=== PATIENT | female | born 1940 | race Caucasian/White ===

== ENCOUNTER 2019-01-03 15:15 | Emergency (ER) | payer MEDICARE, OTHER ==
[2019-01-03] MEDS ORDERED: SODIUM CHLORIDE 0.9% (FLUSH) 10 ML SYG IV PRN (17:04)
[2019-01-03] MEDS ORDERED: VANCOMYCIN HCL INJ 750 MG in SODIUM CHLORIDE 0.9% 250ML 250 ML IVPB ONE (17:05)
[2019-01-03] MEDS ORDERED: VANCOMYCIN HCL INJ 1,000 MG VIAL IVPB ONE (17:17)
[2019-01-03] MEDS ORDERED: SODIUM CHLORIDE 0.9% 250ML 250 ML ONE (17:17)
[2019-01-03] MEDS ORDERED: methylPREDNISolone SODIUM SUC 125 MG/2 ML VIAL IV ONE (17:24)
[2019-01-03] MEDS ORDERED: valACYclovir 500 MG TAB PO ONE (17:26)
--- NOTE | 2019-01-03 18:15 | ED.PDOC ---
History of Present Illness - General Chief Complaint: Skin/Abrasion/Tear Stated Complaint: discoloration and blisters to lt neck,chest, back Time Seen by Provider: 01/03/19 17:02 Source: patient, family Exam Limitations: no limitations - History of Present Illness Initial Comments: PT PRESENTS TO THE ED SENT IN BY DR. BEYER DUE TO RASH LOCATED ON LEFT SHOULDER AND NECK. FAMILY AT BEDSIDE STATES THAT RASH HAS BEEN PRESENT FOR THE PAST 3 DAYS AND APPEARS TO BE GETTING WORSE. PT WAS TOLD THAT RASH WAS DUE TO SHINGLES AT THE NURSING FACILITY, HOWEVER DR. BEYER WANTED HER TO BE EVALUATED IN THE ED. Timing/Duration: getting worse Severity: moderate Improving Factors: nothing Worsening Factors: nothing Associated Symptoms: denies symptoms Allergies/Adverse Reactions: Allergies NO KNOWN ALLERGY Allergy (Verified 01/03/19 18:30) Home Medications: Ambulatory Orders Arformoterol Tartrate [Brovana] 15 mcg INH Q12HR 01/03/19 Fluconazole [Diflucan Tab] 100 mg PO DAILY 01/03/19 Insulin Lispro [Humalog] 01/03/19 Metoprolol Tartrate [Lopressor] 50 mg PO Q12HR 01/03/19 Pantoprazole Tablet [Protonix] 40 mg PO BID 01/03/19 Prednisone [Deltasone] 40 mg PO DAILY 01/03/19 Sodium Bicarbonate (Antacid) [Sodium Bicarbonate] 1,300 mg PO BID 01/03/19 amLODIPine BESYLATE [Norvasc] 10 mg PO DAILY 01/03/19 Review of Systems - Review of Systems Constitutional: Denies: chills, fever EENTM: Denies: nose congestion, throat pain Respiratory: Denies: cough, short of breath Cardiology: Denies: chest pain, palpitations Gastrointestinal/Abdominal: Denies: nausea, vomiting Genitourinary: Denies: dysuria, frequency Musculoskeletal: Denies: joint pain, joint swelling Skin: States: see HPI, change in color, lesions, rash. Denies: dryness Neurological: Denies: headache, numbness Endocrine: States: no symptoms reported Hematologic/Lymphatic: States: no symptoms reported Past Medical History (General) - Patient Medical History Hx Seizures: No Hx Dementia: Yes - Traumatic brain injury Hx Asthma: No Hx of COPD: No Hx Cardiac Disorders: No Hx Congestive Heart Failure: No Hx Hypertension: Yes Hx Diabetes: No Hx Renal Disease: Yes - Dialysis pt Hx Cancer: No - Vaccination History Hx Tetanus, Diphtheria Vaccination: No Hx Influenza Vaccination: No Hx Pneumococcal Vaccination: Yes Immunizations Up to Date: Yes - Social History Hx Tobacco Use: No Hx Alcohol Use: No Hx Substance Use: No Hx Depression: No - Activities of Daily Living Correction/Assisted Living (if applicable):: [facility] - Female History Patient is a Female of Child Bearing Age (10 -59 yrs old): No - Triage Comment ED Triage Comment: Pt assisted into bed and into gown. Family Medical History - Family History Mother Family History: Unknown Living Status: Physical Exam - Physical Exam General Appearance: Alert, No apparent distress, Well Developed, Well Groomed, Well Hydrated Eye Exam: bilateral normal Ears, Nose, Throat: hearing grossly normal Neck: full range of motion, supple Respiratory: lungs clear, normal breath sounds, no respiratory distress Cardiovascular/Chest: regular rate, rhythm, no murmur, other - POORNIMA CATHETER IN THE RIGHT ANTERIOR CHEST WALL Gastrointestinal/Abdominal: non tender, soft Extremity: non-tender, normal inspection Neurologic: alert, normal mood/affect, oriented x 3 Skin Exam: rash - DIFFUSE PURPURA IN A DERMATOMAL DISTRIBUTION ON THE LEFT NECK/BACK/SHOULDER/AND CHEST WALL WITH AREAS OF BLISTERING AND HONEY COLORED CRUSTING Progress - Progress Progress: 01/03/19 18:44 PT RESTING COMFORTABLY, LABS AND PLAN TO TRANSFER FOR IV ABX DISCUSSED WITH PT AND FAMILY. - Results/Orders Results/Orders: Laboratory Tests 01/03/19 01/03/19 01/03/19 17:51 17:51 17:51 WBC 8.1 RBC 6.02 H Hgb 15.9 Hct 51.3 H MCV 85.2 MCH 26.5 L MCHC 31.1 L RDW 36.0 H Plt Count 222 MPV 8.6 Absolute Neuts (auto) 7.50 H Absolute Lymphs (auto) 0.30 L Absolute Monos (auto) 0.10 L Absolute Eos (auto) 0.20 Absolute Basos (auto) 0.00 Neutrophils % 92.0 H Lymphocytes % 4.2 L Monocytes % 1.6 L Eosinophils % 1.9 Basophils % 0.3 Normal RBC Morphology Stain quality accept PT 11.8 H INR 1.18 H PTT (SP) 24.7 Sodium 139 Potassium 2.7 L Chloride 95 L Carbon Dioxide 28 Anion Gap 18.7 H BUN 38 H Creatinine 3.30 H BUN/Creatinine Ratio 11.5 Random Glucose 112 H Serum Osmolality 287.3 Calcium 7.0 L Total Bilirubin 0.7 AST 18 ALT 19 Alkaline Phosphatase 92 Serum Total Protein 5.4 L Albumin 2.7 L Globulin 2.7 Albumin/Globulin Ratio 1.0 L Departure - Departure Clinical Impression: Impetigo bullosa, Shingles rash Time of Disposition: 18:47 Disposition: Transfer to Hospital Condition: Fair Departure Forms: ED Discharge - Pt. Copy, Patient Portal Self Enrollment Instructions: DI for Abrasion Home Medications: Ambulatory Orders Arformoterol Tartrate [Brovana] 15 mcg INH Q12HR 01/03/19 Fluconazole [Diflucan Tab] 100 mg PO DAILY 01/03/19 Insulin Lispro [Humalog] 01/03/19 Metoprolol Tartrate [Lopressor] 50 mg PO Q12HR 01/03/19 Pantoprazole Tablet [Protonix] 40 mg PO BID 01/03/19 Prednisone [Deltasone] 40 mg PO DAILY 01/03/19 Sodium Bicarbonate (Antacid) [Sodium Bicarbonate] 1,300 mg PO BID 01/03/19 amLODIPine BESYLATE [Norvasc] 10 mg PO DAILY 01/03/19 Transfer to Outside Facility - Transfer Information Accepting Provider:: DR. REBOLLEDO Accepting Facility: [facility] Reason for Transfer: specialized care not available - DIALYSIS UNIT
[2019-01-03] MEDS ORDERED: methylPREDNISolone SODIUM SUC 125 MG/2 ML VIAL ONE (19:58)
[2019-01-03] MEDS ORDERED: valACYclovir 500 MG TAB ONE (20:05)
[2019-01-03 20:23] VITALS: BP 131/107; TEMP 98.2; O2SAT 93
[2019-01-03] MEDS ORDERED: MORPHINE SULFATE INJ 10 MG/ML VIAL IV ONE (20:29)
[2019-01-03] MEDS ORDERED: MORPHINE SULFATE INJ 10 MG/ML VIAL ONE (20:30)
== END 2019-01-03 20:40 | disposition short-term general hospital (02) ==
LOC: ER 15:15
DX: B02.9 Zoster without complications (principal); L01.00 Impetigo, unspecified; N18.6 End stage renal disease; I12.0 Hypertensive chronic kidney disease with stage 5 chronic kidney disease or end stage renal disease; Z99.2 Dependence on renal dialysis; Z87.820 Personal history of traumatic brain injury; Z79.4 Long term (current) use of insulin; Z79.899 Other long term (current) drug therapy
CPT/HCPCS: 36415; 80053; 85025; 85610; 85730; 87040; J2270; J2930; J3370; J7050

== ENCOUNTER 2019-01-18 17:41 | Emergency (ER) | payer MEDICARE, OTHER ==
--- NOTE | 2019-01-18 18:54 | ED.PDOC ---
History of Present Illness - General Chief Complaint: General Stated Complaint: Bruising to Festus cath area Time Seen by Provider: 01/18/19 18:45 Source: patient, family Exam Limitations: no limitations - History of Present Illness Initial Comments: patient presents today with difficulties with her port. Patient states [facility]. The time they moved her she felt pain on the area underneath her port on her right breast and underneath her arm where they had transported her. At that time she thought he was doing okay but today when the charge nurse evaluated her at the [facility] they had a large hematoma in the front portion of her chest wall and her back. We did speak to Dr. Downing her inspector repairer sandstone who stated that she went into hepatorenal failure after pneumonia and sepsis and was getting dialysis after acute illness and the hope is that she will be able to be off of it soon. She has been steady in her creatinine in the last 2 checks at 3.5. He suggested checking blood count and cmp and arranging transfer to have port removed and bleeding evaluated. If the family refuses [facility] (and they have) ok to transfer to their choice of facility. Timing/Duration: 24 hours Severity: moderate Improving Factors: nothing Worsening Factors: nothing Associated Symptoms: denies symptoms Allergies/Adverse Reactions: Allergies NO KNOWN ALLERGY Allergy (Verified 01/03/19 18:30) Home Medications: Ambulatory Orders Arformoterol Tartrate [Brovana] 15 mcg INH Q12HR 01/03/19 Fluconazole [Diflucan Tab] 100 mg PO DAILY 01/03/19 Insulin Lispro [Humalog] 01/03/19 Metoprolol Tartrate [Lopressor] 50 mg PO Q12HR 01/03/19 Pantoprazole Tablet [Protonix] 40 mg PO BID 01/03/19 Prednisone [Deltasone] 40 mg PO DAILY 01/03/19 Sodium Bicarbonate (Antacid) [Sodium Bicarbonate] 1,300 mg PO BID 01/03/19 amLODIPine BESYLATE [Norvasc] 10 mg PO DAILY 01/03/19 Review of Systems - Review of Systems Constitutional: States: no symptoms reported. Denies: chills, fever EENTM: States: no symptoms reported Respiratory: States: no symptoms reported. Denies: cough, short of breath Cardiology: States: no symptoms reported Gastrointestinal/Abdominal: States: no symptoms reported Genitourinary: States: see HPI Musculoskeletal: States: see HPI Past Medical History (General) - Patient Medical History Hx Seizures: No Hx Dementia: Yes - Traumatic brain injury Hx Asthma: No Hx of COPD: No Hx Cardiac Disorders: No Hx Congestive Heart Failure: No Hx Hypertension: Yes Hx Diabetes: No Hx Renal Disease: Yes - Dialysis pt Hx Cancer: No - Vaccination History Hx Tetanus, Diphtheria Vaccination: No Hx Influenza Vaccination: No Hx Pneumococcal Vaccination: Yes - Social History Hx Tobacco Use: No Hx Alcohol Use: No Hx Substance Use: No Hx Depression: No Family Medical History - Family History Mother Family History: Unknown Living Status: Physical Exam - Physical Exam General Appearance: Alert, Frail, No apparent distress Eye Exam: bilateral normal Ears, Nose, Throat: hearing grossly normal Neck: non-tender Respiratory: chest non-tender, lungs clear, normal breath sounds Cardiovascular/Chest: normal peripheral pulses, regular rate, rhythm, no murmur, other - cath on right chest wall with swelling and hematoma on right breast, axilla, and back Gastrointestinal/Abdominal: normal bowel sounds, non tender, soft Progress - Progress Progress: 01/18/19 21:06 called to [facility] and will accept transfer to evaluate the port and see if needs to be removed. - Results/Orders Results/Orders: Laboratory Results WBC 17.4 K/mm3 (4.8-10.8) H 01/18/19 19:16 RBC 3.82 M/mm3 (4.20-5.40) L 01/18/19 19:16 Hgb 10.4 gm/dL (12.0-16.0) L 01/18/19 19:16 Hct 33.8 % (36.0-47.0) L 01/18/19 19:16 MCV 88.5 fl (81.0-99.0) 01/18/19 19:16 MCH 27.3 pg (27.0-31.0) 01/18/19 19:16 MCHC 30.8 g/dL (33.0-37.0) L 01/18/19 19:16 RDW 36.2 % (11.5-14.5) H 01/18/19 19:16 Plt Count 386 K/mm3 (130-400) 01/18/19 19:16 MPV 8.4 fl (7.40-10.4) 01/18/19 19:16 Absolute Neuts (auto) 16.40 K/uL (1.8-6.8) H 01/18/19 19:16 Absolute Lymphs (auto) 0.50 K/uL (1.0-3.4) L 01/18/19 19:16 Absolute Monos (auto) 0.20 K/uL (0.2-0.8) 01/18/19 19:16 Absolute Eos (auto) 0.10 K/uL (0.0-0.4) 01/18/19 19:16 Absolute Basos (auto) 0.20 K/uL (0.0-0.1) H 01/18/19 19:16 Neutrophils % 94.2 % (42.0-78.0) H 01/18/19 19:16 Lymphocytes % 2.9 % (20.0-50.0) L 01/18/19 19:16 Monocytes % 1.2 % (2.0-9.0) L 01/18/19 19:16 Eosinophils % 0.7 % (1.0-5.0) L 01/18/19 19:16 Basophils % 1.0 % (0.0-2.0) 01/18/19 19:16 Sodium 135 mmol/L (135-145) 01/18/19 19:16 Potassium 4.3 mmol/L (3.6-5.0) 01/18/19 19:16 Chloride 102 mmol/L (101-111) 01/18/19 19:16 Carbon Dioxide 20 mmol/L (21-31) L 01/18/19 19:16 Anion Gap 17.3 (12-18) 01/18/19 19:16 BUN 76 mg/dL (7-18) H 01/18/19 19:16 Creatinine 3.91 mg/dL (0.6-1.3) H 01/18/19 19:16 BUN/Creatinine Ratio 19.4 (10-20) 01/18/19 19:16 Random Glucose 120 mg/dL (70-105) H 01/18/19 19:16 Serum Osmolality 293.9 mOsm/L (275-295) 01/18/19 19:16 Calcium 7.5 mg/dL (8.4-10.2) L 01/18/19 19:16 Total Bilirubin 0.5 mg/dL (0.2-1.0) 01/18/19 19:16 AST 21 IU/L (10-42) 01/18/19 19:16 ALT 14 IU/L (10-60) 01/18/19 19:16 Alkaline Phosphatase 71 IU/L (42-121) 01/18/19 19:16 Serum Total Protein 5.2 gm/dL (6.4-8.2) L 01/18/19 19:16 Albumin 2.7 g/dl (3.2-5.5) L 01/18/19 19:16 Globulin 2.5 gm/dL (2.3-3.5) 01/18/19 19:16 Albumin/Globulin Ratio 1.1 (1.1-1.9) 01/18/19 19:16 Departure - Departure Clinical Impression: dialysis port malfunction, Hematoma Disposition: Transfer to Hospital Departure Forms: ED Discharge - Pt. Copy, Patient Portal Self Enrollment Home Medications: Ambulatory Orders Arformoterol Tartrate [Brovana] 15 mcg INH Q12HR 01/03/19 Fluconazole [Diflucan Tab] 100 mg PO DAILY 01/03/19 Insulin Lispro [Humalog] 01/03/19 Metoprolol Tartrate [Lopressor] 50 mg PO Q12HR 01/03/19 Pantoprazole Tablet [Protonix] 40 mg PO BID 01/03/19 Prednisone [Deltasone] 40 mg PO DAILY 01/03/19 Sodium Bicarbonate (Antacid) [Sodium Bicarbonate] 1,300 mg PO BID 01/03/19 amLODIPine BESYLATE [Norvasc] 10 mg PO DAILY 01/03/19 Transfer to Outside Facility - Transfer Information Accepting Facility: [facility] Reason for Transfer: specialized care not available
[2019-01-18] MEDS: HYDROcodone 7.5MG/APAP 325MG 1 EA TAB PO ONE (20:42)
[2019-01-18 21:33] VITALS: O2SAT 97
[2019-01-18 21:39] VITALS: BP 173/89; TEMP 98.1
[2019-01-18] MEDS ORDERED: LIDOCAINE/PRILOCAINE 2.5% 30 GM TUBE TOP ONE (21:48)
[2019-01-18] MEDS: LIDOCAINE/PRILOCAINE 2.5% 30 GM TUBE TOP ONE (21:51)
== END 2019-01-18 22:00 | disposition short-term general hospital (02) ==
LOC: ER 17:41
DX: T82.898A Other specified complication of vascular prosthetic devices, implants and grafts, initial encounter (principal); S20.212A Contusion of left front wall of thorax, initial encounter; N18.6 End stage renal disease; F03.90 Unspecified dementia, unspecified severity, without behavioral disturbance, psychotic disturbance, mood disturbance, and anxiety; I12.0 Hypertensive chronic kidney disease with stage 5 chronic kidney disease or end stage renal disease; Y84.8 Other medical procedures as the cause of abnormal reaction of the patient, or of later complication, without mention of misadventure at the time of the procedure; Z99.2 Dependence on renal dialysis; Z87.820 Personal history of traumatic brain injury; Z79.899 Other long term (current) drug therapy; Y92.9 Unspecified place or not applicable